=== PATIENT | female | born 2005 | race Caucasian/White ===

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

== ENCOUNTER 2023-03-10 19:35 | Outpatient (REF) | payer OTHER, SELFPAY ==
[2023-03-10 21:01] LABS: Source Nasal/Nares
[2023-03-10 21:44] LABS: COVID-19 PCR Negative (Negative)
== END 2023-03-10 19:36 | disposition home or self-care (01) ==
LOC: LBN 19:35
PROVIDERS: PCP Physician Assistant; Visit Provider Physician Assistant Medical
DX: J02.9 Acute pharyngitis, unspecified (principal); Z20.822 Contact with and (suspected) exposure to COVID-19
CPT/HCPCS: 87077; 87635; 87070

== ENCOUNTER 2024-03-30 17:49 | Outpatient (REF) | payer BC, SELFPAY | END 2024-03-30 17:50 | disposition home or self-care (01) | LOC: LBN 17:49 | PROVIDERS: PCP Physician Assistant; Visit Provider Nurse Practitioner Family | DX: R30.0 Dysuria (principal) | CPT/HCPCS: 87086 ==